=== PATIENT | male | born 1955 | race Caucasian/White ===

== ENCOUNTER 2016-10-06 07:00 | Day surgery (SDC) | payer BC ==
[~2016-10-06 07:00] MED LIST: FENTANYL 250 MCG/5 ML AMP IV PRN; IV START KIT ONE; LACTATED RINGERS 1,000 ML IV SCH; LIDOCAINE Viscous 2% 15 ML UDCUP PO PRN; MIDAZOLAM HCL 5 MG/5 ML VIAL IV PRN
[2016-10-06 15:15] LABS: HELICOBACTER PYLORII DETECTION NEGATIVE (NEGATIVE)
--- NOTE | 2016-10-08 09:00 | SURGPATH ---
[facility] [address] [place] [id number] Patient Name: CHRISTEN VILLANUEVA MR#: [id number] : 1955 Gender: M Specimen #: [id number] Collected: 10/06/2016 Received: 10/07/2016 Reported: 10/08/2016 Submitting Phys: TIGRE MILLER Copy To Phys: [facility] S[facility]ILL[facility] Clinical History / Pre-Operative Diagnosis: PERIUMBILICAL PAIN WITH BLOATING AND SATIETY; RULE OUT GIARDIA, CELIAC SPRUE AND GASTRITIS Specimen Source / Surgical Procedure Performed: #1-DUODENAL BIOPSY; #2-ANTRAL BIOPSY Interpretation: 1. DUODENUM, BIOPSY: - SMALL BOWEL MUCOSA WITH NO DIAGNOSTIC ABNORMALITY 2. STOMACH, ANTRUM, BIOPSY: - GASTRIC MUCOSA WITH NO DIAGNOSTIC ABNORMALITY Electronically Signed Out Rhonda Sellers M.D. Gross Description: #1 The specimen is received in a formalin filled container labeled with the patient's name and "duodenal biopsy". A single machuca biopsy is 0.4 cm. Totally embedded in cassette #1. #2 The specimen is received in a formalin filled container labeled with the patient's name and "antral biopsy". Two machuca biopsies are 0.2 and 0.5 cm. Totally embedded in cassette #2. Cole Weiss PSalvador Microscopic Description: 1. Sections show fragments of small bowel mucosa with long and well preserved villous processes. There is no significant inflammation and lymphocytes are not increased within the epithelium. No infectious organisms are identified and there is no dysplasia. 2. Sections show fragments of gastric mucosa. There is normal mucosal architecture and no significant inflammation. No Helicobacter organisms are identified and there is no intestinal metaplasia or dysplasia. 1: [id number] 2: 13364 R10.33
== END 2016-10-06 09:20 | disposition home or self-care (01) ==
LOC: SDC 07:00
PROVIDERS: ATTEND Internal Medicine Gastroenterology
PROC: 0DB98ZX Excision of Duodenum, Via Natural or Artificial Opening Endoscopic, Diagnostic (ICD-10-PCS; principal; 2016-10-06)
PROC: 0DB68ZX Excision of Stomach, Via Natural or Artificial Opening Endoscopic, Diagnostic (ICD-10-PCS; 2016-10-06)
DX: K29.70 Gastritis, unspecified, without bleeding (principal); K29.80 Duodenitis without bleeding; R16.1 Splenomegaly, not elsewhere classified; K86.89 Other specified diseases of pancreas; E78.5 Hyperlipidemia, unspecified; E55.9 Vitamin D deficiency, unspecified
CPT/HCPCS: 87081; 43239; J3010; J2250; A9270; J7120